=== PATIENT | male | born 1975 | race Caucasian/White ===

== ENCOUNTER 2018-10-20 11:02 | Emergency (ER) | payer MEDICAID ==
[~2018-10-20] VITALS: Ht 180.3 cm; Wt 130.9 kg
[2018-10-20 11:03] VITALS: BP 128/69; PULSE 97; RESP 18; Ht 180.3 cm; Wt 130.9 kg
[2018-10-20] MEDS ORDERED: DIPHTH/TET/ACEL PERTUSS (ADULT) 0.5 ML VIAL IM* ONE (12:00)
[2018-10-20] MEDS ORDERED: HYDROCODONE/APAP (10/325) TAB PO ONE (12:00)
[2018-10-20] MEDS ORDERED: LIDOCAINE 1% (MPF) 5 ML VIAL INJ ONE (13:00)
[2018-10-20] MEDS ORDERED: IBUP-1542 PO (13:32)
[2018-10-20] MEDS ORDERED: CEPH-443 PO (13:32)
[2018-10-20] MEDS ORDERED: BACITRACIN 0.9 GM OINT TOP SCH (13:34)
--- NOTE | 2018-10-20 13:38 | ERD ---
ER Documentation Chief Complaint Chief Complaint lac on right 2nd finger x 1 hour cut with knife HPI 53-year-old male patient past medical history of diabetes, works at a car [employer] presents to the ED stating that she was vacuuming a car and there was a metal blade and the cup street actually cut his right index finger. Describes the pain as sharp and rates it a 5 out of 10. States that he is right-handed. Denies any fever, chills, nausea, vomiting, loss sensation, loss of range of motion. States that he still able to move his finger without any difficulty. States that ROS All systems reviewed and are negative except as per history of present illness. Medications Home Meds Active Scripts Ibuprofen* (Motrin*) 600 Mg Tab, 600 MG PO Q6, #30 TAB Prov:ISABEL HERNANDEZ PA-C 10/20/18 Cephalexin* (Keflex*) 500 Mg Capsule, 500 MG PO QID for 7 Days, CAP Prov:ISABEL HERNANDEZ PA-C 10/20/18 Allergies Allergies: Coded Allergies: No Known Allergies (Verified Allergy, Unknown, 10/20/18) PMhx/Soc Medical and Surgical Hx: pt denies Medical Hx, pt denies Surgical Hx Hx Alcohol Use: No Hx Substance Use: No Hx Tobacco Use: No Smoking Status: Never smoker FmHx Family History: No diabetes, No coronary disease Physical Exam Vitals Vital Signs Date Temp Pulse Resp B/P (MAP) Pulse Ox O2 O2 Flow FiO2 Time Delivery Rate 10/20/18 97.1 97 18 128/69 96 11:03 (88) Physical Exam Const: [id number]-[id number], well-nourished. In no acute distress. Head: Atraumatic, normocephalic Eyes: Normal Conjunctiva without injection ENT: Normal external ear, nose and mouth. Neck: Full range of motion. No meningismus. Resp: Clear to auscultation bilaterally. No wheezing, rhonchi, rales, or crackles. No accessory muscle use. No retractions. Cardio: Regular rate and rhythm, no murmurs Skin: No petechiae or rashes Back: No midline tenderness. No CVA tenderness. Ext: No cyanosis, or edema. Cap refill less than 2 seconds. Distal pulses intact bilaterally. 2 cm U-shaped laceration noted at the distal phalanx above the DIP of the volar aspect of patient's right index finger. Full range of motion of the DIP, PIP, MCP joints bilaterally. Neur: Awake and alert. Normal gait and coordination. Muscle strength 5/5. Sensation intact bilaterally. Psych: Normal Mood and Affect Results 24 hrs Current Medications Medications Dose Sig/Denzel Start Time Status Last (Trade) Ordered Route PRN Stop Time Admin Dose Reason Admin Diphtheria/ 0.5 ml ONCE ONCE 10/20/18 DC 10/20/18 Tetanus/Acell IM* 12:00 12:11 Pertussis 10/20/18 12:01 (Adacel) 1 tab ONCE ONCE 10/20/18 DC 10/20/18 Acetaminophen PO 12:00 12:10 / 10/20/18 12:01 Hydrocodone Bitart (Gilson (10325)) Lidocaine 5 ml ONCE ONCE 10/20/18 DC (Xylocaine INJ 13:00 1% (Mpf)) 10/20/18 13:01 Bacitracin 2 applic ONCE TOP 10/20/18 (Bacitracin 13:34 Oint (Ud)) 10/20/18 20:00 Procedures/MDM 43-year-old male patient past medical history of diabetes presents to ED complaining of right index finger injury as he was vaccinated vehicle with a metal blade that cut his finger about 1 hour prior to arrival. Patient is afebr ile and nontoxic-appearing. Tdap was updated here in the ED. Patient gave consent to perform laceration repair. Laceration Repair by me: Anesthesia: 5 cc 1% lidocaine locally Location: Right index finger Tendon/Joint/Nerves: No injury Foreign body: None detected after copious irrigation and exploration Technique: 6 4-0 Ethilon Simple Interrupted Sutures Complexity: No subcutaneous sutures/mucosal repair/edge excision Post Closure Length: [2] cm Patient's bleeding was easily controlled in the department and there is no indication of anemia. Patient is neurovascularly intact. No evidence of compartment syndrome, neurologic injury, vascular injury, open joint, tendon laceration, or foreign body. Patient is appropriate for outpatient follow up. 48 hour wound check. Scar minimization instructions given. Instructed patient to return for suture removal in 7-10 days. Keflex was prescribed to patient for infection prevention. Instructed patient to return to the ED sooner for any worsening symptoms. Follow up with primary care physician in 1-2 days. Patient's questions were answered. Patient understood and agreed with discharge plan. Departure Diagnosis: Primary Impression: Laceration of finger Encounter type: initial encounter Finger: index finger Damage to nail status: without damage Foreign body presence: without foreign body Laterality: right Qualified Codes: S61.210A - Laceration without foreign body of right index finger without damage to nail, initial encounter Condition: Stable Patient Instructions: Laceration, Hand Referrals: [facility] YOU HAVE RECEIVED A MEDICAL SCREENING EXAM AND THE RESULTS INDICATE THAT YOU DO NOT HAVE A CONDITION THAT REQUIRES URGENT TREATMENT IN THE EMERGENCY DEPARTMENT. FURTHER EVALUATION AND TREATMENT OF YOUR CONDITION CAN WAIT UNTIL YOU ARE SEEN IN YOUR DOCTORS OFFICE WITHIN THE NEXT 1-2 DAYS. IT IS YOUR RESPONSIBILITY TO MAKE AN APPOINTMENT FOR FOLOW-UP CARE. IF YOU HAVE A PRIMARY DOCTOR --you should call your primary doctor and schedule an appointment IF YOU DO NOT HAVE A PRIMARY DOCTOR YOU CAN CALL OUR PHYSICIAN REFERRAL HOTLINE AT IF YOU CAN NOT AFFORD TO SEE A PHYSICIAN YOU CAN CHOSE FROM THE FOLLOWING [facility] [address] [facility] [address]. [facility] [address] [facility] [address] [facility] [address] [facility]. [facility]. [address] [facility]. [facility] YOU HAVE RECEIVED A MEDICAL SCREENING EXAM AND THE RESULTS INDICATE THAT YOU DO NOT HAVE A CONDITION THAT REQUIRES URGENT TREATMENT IN THE EMERGENCY DEPARTMENT. FURTHER EVALUATION AND TREATMENT OF YOUR CONDITION CAN WAIT UNTIL YOU ARE SEEN IN YOUR DOCTORS OFFICE WITHIN THE NEXT 1-2 DAYS. IT IS YOUR RESPONSIBILITY TO MAKE AN APPOINTMENT FOR FOLOW-UP CARE. IF YOU HAVE A PRIMARY DOCTOR --you should call your primary doctor and schedule and appointment IF YOU DO NOT HAVE A PRIMARY DOCTOR YOU CAN CALL OUR PHYSICIAN REFERRAL HOTLINE AT . IF YOU CAN NOT AFFORD TO SEE A PHYSICIAN YOU CAN CHOSE FROM THE FOLLOWING [facility] INSTITUTIONS: [facility] [id number] [place] [id number] [facility] [address] [place] [address] [facility] [address] [place] [address] [facility] URGENT CARE/SPECIALTIES Additional Instructions: Llame al doctor MAANA y eric jo MARIA E PARA DENTRO DE 2-3 MEEK.Dgale a la secretaria que nosotros le instruimos hacer esta maria e.Avise o llame si lanier condicin se empeora antes de la maria e. Regresa aqui si peor o no mejor. WOUND CHECK:CONSULTE A LANIER MDICO EN 2 webber para ghulam LANIER HERIDA. SUTURE REMOVAL:CONSULTE A LANIER MDICO PARA SACAR LANIER PUNTOS.PARA LA SAMIRA 5-6 webber.EN OTRO LUGAR 7-10 webber. ISABEL HERNANDEZ PA-C Oct 20, 2018 13:38
== END 2018-10-20 13:51 | disposition home or self-care (01) ==
LOC: FTE 11:02
DX: S61.210A Laceration without foreign body of right index finger without damage to nail, initial encounter (principal); W26.0XXA Contact with knife, initial encounter; Y92.89 Other specified places as the place of occurrence of the external cause; Z23 Encounter for immunization
CPT/HCPCS: 12001; 90471; 90715; Z7502; Z7610

== ENCOUNTER 2018-10-23 11:36 | Emergency (ER) | payer MEDICAID ==
[~2018-10-23] VITALS: Ht 152.4 cm; Wt 121.0 kg
[~2018-10-23 11:36] MED LIST: CEPH-443 PO; IBUP-1542 PO
[2018-10-23 11:40] VITALS: BP 116/69; PULSE 75; RESP 18; Ht 152.4 cm; Wt 121.0 kg
--- NOTE | 2018-10-23 12:26 | ERD ---
ER Documentation Chief Complaint Chief Complaint LAC TO R INDEX FINGER HPI Patient is a 43-year-old male with past medical history of diabetes who presents ER for wound recheck. Patient states he injured his right index finger 3 days ago. Patient has no fevers or chills. Patient has no numbness or tingling. Patient has no redness, swelling or drainage from his affected digit. ROS All systems reviewed and are negative except as per history of present illness. Medications Home Meds Active Scripts Ibuprofen* (Motrin*) 600 Mg Tab, 600 MG PO Q6, #30 TAB Prov:ISABEL HERNANDEZ PA-C 10/20/18 Cephalexin* (Keflex*) 500 Mg Capsule, 500 MG PO QID for 7 Days, CAP Prov:ISABEL HERNANDEZ PA-C 10/20/18 Allergies Allergies: Coded Allergies: No Known Allergies (Verified Allergy, Unknown, 10/20/18) PMhx/Soc Medical and Surgical Hx: pt denies Medical Hx, pt denies Surgical Hx Hx Alcohol Use: No Hx Substance Use: No Hx Tobacco Use: No Smoking Status: Never smoker FmHx Family History: diabetes Physical Exam Vitals Vital Signs Date Temp Pulse Resp B/P (MAP) Pulse Ox O2 O2 Flow FiO2 Time Delivery Rate 10/23/18 98.5 75 18 116/69 99 11:40 (85) Physical Exam GENERAL: Well-developed, well-nourished male. Appears in no acute distress. HEAD: Normocephalic, atraumatic. EYES: Pupils are equally reactive bilaterally. EOMs grossly intact. No conjunctival erythema. ENT: Moist mucous membranes. No uvula deviation. No kissing tonsils. NECK: Supple. No meningismus. Normal range of motion of the neck. LUNG: Clear to auscultation bilaterally. No rhonchi, wheezing, rales or coarse breath sounds. HEART: Regular rate and rhythm. No murmurs, rubs or gallops. EXTREMITIES: Equal pulses bilaterally. No peripheral clubbing, cyanosis or edema. No unilateral leg swelling. NEUROLOGIC: Alert and oriented. Moving all four extremities without any difficulty. Normal speech. Steady gait. SKIN: [address] on the distal aspect of the second phalanx. Normal range of motion of MCP, PIP and DIP joint. Normal pulses. Normal cap refill. Procedures/MDM Wound shows no evidence of infection, foreign body, neurologic injury, vascular injury, open joint or tendon laceration. Patient was to continue taking antibiotics as advised. Patient appropriate for outpatient follow up. Suture removal advised in 7 days. Departure Diagnosis: Primary Impression: Encounter for re-check of laceration wound Condition: Fair Patient Instructions: Wound Care Referrals: [facility] YOU HAVE RECEIVED A MEDICAL SCREENING EXAM AND THE RESULTS INDICATE THAT YOU DO NOT HAVE A CONDITION THAT REQUIRES URGENT TREATMENT IN THE EMERGENCY DEPARTMENT. FURTHER EVALUATION AND TREATMENT OF YOUR CONDITION CAN WAIT UNTIL YOU ARE SEEN IN YOUR DOCTORS OFFICE WITHIN THE NEXT 1-2 DAYS. IT IS YOUR RESPONSIBILITY TO MAKE AN APPOINTMENT FOR FOLOW-UP CARE. IF YOU HAVE A PRIMARY DOCTOR --you should call your primary doctor and schedule an appointment IF YOU DO NOT HAVE A PRIMARY DOCTOR YOU CAN CALL OUR PHYSICIAN REFERRAL HOTLINE AT IF YOU CAN NOT AFFORD TO SEE A PHYSICIAN YOU CAN CHOSE FROM THE FOLLOWING [facility] [address] [facility] [address] [facility] [facility] [address] [facility] [address] [facility] [address] [facility]. [facility]. [address] [facility]. [facility] YOU HAVE RECEIVED A MEDICAL SCREENING EXAM AND THE RESULTS INDICATE THAT YOU DO NOT HAVE A CONDITION THAT REQUIRES URGENT TREATMENT IN THE EMERGENCY DEPARTMENT. FURTHER EVALUATION AND TREATMENT OF YOUR CONDITION CAN WAIT UNTIL YOU ARE SEEN IN YOUR DOCTORS OFFICE WITHIN THE NEXT 1-2 DAYS. IT IS YOUR RESPONSIBILITY TO MAKE AN APPOINTMENT FOR FOLOW-UP CARE. IF YOU HAVE A PRIMARY DOCTOR --you should call your primary doctor and schedule and appointment IF YOU DO NOT HAVE A PRIMARY DOCTOR YOU CAN CALL OUR PHYSICIAN REFERRAL HOTLINE AT . IF YOU CAN NOT AFFORD TO SEE A PHYSICIAN YOU CAN CHOSE FROM THE FOLLOWING [facility]: [facility] [address] [place] [address] [facility] [address] [place] [address] [facility] [address] [place] [address] Additional Instructions: Call your primary care doctor TOMORROW for an appointment during the next 1-2 days.See the doctor sooner or return here if your condition worsens before your appointment time. TAYLOR RIVERO PA-C Oct 23, 2018 12:26
== END 2018-10-23 13:56 | disposition left against medical advice (07) ==
LOC: FTE 11:36
DX: Z48.01 Encounter for change or removal of surgical wound dressing (principal); E11.9 Type 2 diabetes mellitus without complications
CPT/HCPCS: 99281

== ENCOUNTER 2018-10-30 12:38 | Emergency (ER) | payer MEDICAID ==
[~2018-10-30] VITALS: Wt 125.0 kg
[2018-10-30 12:48] VITALS: BP 130/70; PULSE 68; RESP 18
--- NOTE | 2018-10-30 14:24 | ERD ---
ER Documentation Chief Complaint Chief Complaint here for suture removal on right index finger. no bleeding HPI 43-year-old male presents for evaluation of suture removal right index finger. He sustained laceration 9 days ago. He has no fevers, redness, bleeding, restricted range of motion weakness or additional complaints. ROS All systems reviewed and are negative except as per history of present illness. Medications Home Meds Active Scripts Ibuprofen* (Motrin*) 600 Mg Tab, 600 MG PO Q6, #30 TAB Prov:ISABEL HERNANDEZ PA-C 10/20/18 Cephalexin* (Keflex*) 500 Mg Capsule, 500 MG PO QID for 7 Days, CAP Prov:ISABEL HERNANDEZ PA-C 10/20/18 Allergies Allergies: Coded Allergies: No Known Allergies (Verified Allergy, Unknown, 10/20/18) PMhx/Soc Hx Alcohol Use: No Hx Substance Use: No Hx Tobacco Use: No FmHx Family History: No diabetes, No coronary disease, No other Physical Exam Vitals Vital Signs Date Temp Pulse Resp B/P (MAP) Pulse Ox O2 O2 Flow FiO2 Time Delivery Rate 10/30/18 98.1 68 18 130/70 98 12:48 (90) Physical Exam Const: No acute distress Head: Atraumatic Eyes: Normal Conjunctiva ENT: Normal External Ears, Nose and Mouth. Neck: Full range of motion. No meningismus. Resp: Clear to auscultation bilaterally Cardio: Regular rate and rhythm, no murmurs Abd: Soft, non tender, non distended. Normal bowel sounds Skin: No petechiae or rashes Back: No midline or flank tenderness Ext: No cyanosis, or edema. Healing laceration on the right fingertip without bleeding, redness, discharge. Neur: Awake and alert Psych: Normal Mood and Affect Procedures/MDM Sutures removed right index finger without complications. Patient presents with a satisfactorily healing right index finger laceration. We discharged home with recommendations for return precautions for fevers, redness, new or worsening symptoms. Departure Diagnosis: Primary Impression: Encounter for removal of sutures Condition: Stable Patient Instructions: Suture Removal, No Complication SEVERINO BEGUM MD Oct 30, 2018 14:24
== END 2018-10-30 16:10 | disposition home or self-care (01) ==
LOC: FTE 12:38
DX: Z48.02 Encounter for removal of sutures (principal)
CPT/HCPCS: 99281